=== PATIENT | female | born 1990 | race Caucasian/White ===

== ENCOUNTER 2016-10-02 23:28 | Emergency (ER) | payer OTHER ==
[2016-10-02] MEDS ORDERED: AMOXICILLIN 500 MG CAPSULE PO ONE (23:41)
[2016-10-02] MEDS ORDERED: HYDROcodone /APAP 5/325 1 EACH TABLET PO ONE ×2 (23:41→23:43)
--- NOTE | 2016-10-02 23:52 | ED Physician Documentation ---
Sore Throat/Dental Pain - HISTORIAN Historian: patient - HPI Stated Complaint: dental pain left jaw Chief Complaint: Dental Pain Additional Information: Pain right mandible began today. Teeth decaying in general since the of a child. Ibuprofen 800 mg twice today. - ROS CONST: no problems - PAST HX Past History: other ( induced hypertension) Allergies/Adverse Reactions: Allergies Allergy/AdvReac Type Severity Reaction Status Date / Time No Known Allergies Allergy Verified 10/02/16 23:50 Home Medications: Ambulatory Orders Medication Instructions Recorded Amoxicillin [Trimox] 500 mg PO TID #30 capsule 10/02/16 HYDROcodone /APAP 5/325 [Saffell 1 each PO Q4 PRN #15 tablet 10/02/16 5/325] - SOCIAL HX Smoking History: non-smoker - FAMILY HX Family History: No - VITAL SIGNS Vital Signs: Vital Signs Temp Pulse Resp BP Pulse Ox 98.4 F 78 16 150/79 10/02/16 23:28 10/02/16 23:28 10/02/16 23:28 10/02/16 23:28 - REVIEWED ASSESSMENTS Nursing Assessment Reviewed: Yes Vitals Reviewed: Yes Progress - Progress Progress: See the dentist as soon as possible. Take all the antibiotics as prescribed until they are completely gone. ED Results Lab/Radiology - Orders Orders: ED Orders Category Date Time Status Amoxicillin [Amoxil] Med 10/02/16 23:41 Discontinued 500 mg PO NOW ONE HYDROcodone /APAP 5/325 [Saffell 5/325] Med 10/02/16 23:41 Discontinued 1 each PO NOW ONE HYDROcodone /APAP 5/325 [Saffell 5/325] Med 10/02/16 23:43 Discontinued 1 each PO NOW ONE Dental Pain Physical Exam - EXAM General Appearance: alert, moderate distress (tearful at times) Head/Neck: head nml inspection, trachea midline, no lymphadenopathy, other ( right molars, mandibular and maxillary, with widespread decay.No abscess ID'ed) Mouth/Throat: lips nml, pharynx nml, voice nml, no drooling, no air way problems Ear/Nose: nml inspection Respiratory: no resp. distress, breath sounds nml CVS: reg. rate & rhythm, heart sounds nml Extremities: nml ROM (gait) Skin: warm/dry, normal color Neuro/Psych: No: weakness Discharge Clincal Impression: Pain due to dental caries Prescriptions: Amoxicillin [Trimox] 500 mg PO TID #30 capsule HYDROcodone /APAP 5/325 [Saffell 5/325] 1 each PO Q4 PRN #15 tablet PRN Reason: Pain Additional Instructions: See the dentist as soon as possible. Take all the antibiotics as prescribed until they are completely gone. Home Medications: Ambulatory Orders Amoxicillin [Trimox] 500 mg PO TID #30 capsule 10/02/16 HYDROcodone /APAP 5/325 [Saffell 5/325] 1 each PO Q4 PRN #15 tablet 10/02/16 Condition: Fair Disposition: HOME, SELF-CARE Decision to Admit: NO Decision Time: 23:57
[2016-10-03 00:40] VITALS: BP 147/74
== END 2016-10-03 00:24 | disposition home or self-care (01) ==
LOC: ED 23:28
DX: K02.9 Dental caries, unspecified (principal)
CPT/HCPCS: A9270 ×2; 99282

== ENCOUNTER 2017-12-18 14:00 | Emergency (ER) | payer OTHER ==
--- NOTE | 2017-12-18 14:14 | ED Physician Documentation ---
Nausea/Vomiting/Diarrhea - HISTORIAN Historian: patient - HPI Stated Complaint: nausea and vomiting Chief Complaint: Nausea,Vomiting,Diarrhea Onset: other (over 2 weeks ) Duration: constant Last known Well Code/Unknown Code: Unknown Timing: sudden onset (with ) Context: other ( ) Severity: moderate Further Comments: yes (she has is around 8 weeks and she has had nausea and vomiting. She reports she was seen in ER in [place] a few days ago and she was treated. She was not able to get her prescriptions due to the pharmacy not having the meds (they will be in tomorrow) she states she is "so hungry but everytime I go to eat I vomit" she states she has not "eaten in 7 days" . She is voiding normally) - Associated Symptoms Vomiting: frequent Diarrhea: other (none) Abdominal Pain: none - ROS CONST: none - PAST HX Past History: none Surgeries/Procedures: none Immunizations: UTD Allergies/Adverse Reactions: Allergies Allergy/AdvReac Type Severity Reaction Status Date / Time No Known Allergies Allergy Verified 12/18/17 14:20 Home Medications: Ambulatory Orders Medication Instructions Recorded Acyclovir [Zovirax] 200 mg PO 12/18/17 Pnv95/Ferrous Fumarate/FA 12/18/17 [ Caplet] - SOCIAL HX Smoking History: cigarettes Alcohol Use: none Drug Use: none - FAMILY HX Family History: none - VITAL SIGNS Vital Signs: Vital Signs Temp Pulse Resp BP Pulse Ox 97.5 F L 78 14 128/72 99 12/18/17 14:02 12/18/17 15:49 12/18/17 15:49 12/18/17 15:49 12/18/17 15:49 - REVIEWED ASSESSMENTS Nursing Assessment Reviewed: Yes Progress - Progress Progress: 1500: states nausea is improved. DG 1530: Nausea is mild. 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5 (0.0-1.5) Neut # (Auto) 5.5 # k/uL # k/uL (1.4-7.7) Lymph # (Auto) 1.6 # k/uL # k/uL (0.6-4.0) [place] # (Auto) 0.3 # k/uL # k/uL (0.0-0.9) Eos # (Auto) 0.2 # k/uL # k/uL (0.0-0.6) Baso # (Auto) 0.0 # k/uL # k/uL (0.0-0.5) Reactive Lymphs % 1.4 % % (0.0-5.0) Reactive Lymphs # 0.1 # k/uL # k/uL (0.0-0.8) Sodium 139 mmol/L mmol/L (136-145) Potassium 4.0 mmol/L mmol/L (3.5-5.1) Chloride 101 mmol/L mmol/L (98-107) Carbon Dioxide 23 mmol/L mmol/L (22-30) BUN 8 mg/dL mg/dL (7-17) Creatinine 0.70 mg/dL mg/dL (0.52-1.04) Estimated Creat Clear 186 Est GFR ( Amer) > 60 (60 - ) Est GFR (Non-Af Amer) > 60 (60 - ) Glucose 103 mg/dL mg/dL (74-106) Calcium 10.0 mg/dL mg/dL (8.4-10.2) Total Bilirubin 0.7 mg/dL mg/dL (0.2-1.3) AST 18 U/L U/L (15-46) ALT 26 U/L U/L (13-69) Alkaline Phosphatase 58 U/L U/L (38-126) Total Protein 8.3 g/dL H g/dL (6.3-8.2) Albumin 4.9 g/dL g/dL (3.5-5.0) Serum HCG, Qual Positive H (NEGATIVE) Urine Color Urine Appearance Urine pH Ur Specific [place] Urine Protein Urine Ketones Urine Occult Blood Urine Nitrite Urine Bilirubin Urine Urobilinogen Ur Leukocyte Esterase Urine Glucose 12/18/17 14:22 WBC RBC Hgb Hct MCV MCH MCHC RDW Plt Count Neut % (Auto) Lymph % (Auto) [place] % (Auto) Eos % (Auto) Baso % (Auto) Neut # (Auto) Lymph # (Auto) [place] # (Auto) Eos # (Auto) Baso # (Auto) Reactive Lymphs % Reactive Lymphs # Sodium Potassium Chloride Carbon Dioxide BUN Creatinine Estimated Creat Clear Est GFR ( Amer) Est GFR (Non-Af Amer) Glucose Calcium Total Bilirubin AST ALT Alkaline Phosphatase Total Protein Albumin Serum HCG, Qual Urine Color Yellow (YELLOW) Urine Appearance Cloudy H (CLEAR) Urine pH 5.5 (5.0 - 8.0) Ur Specific [place] >=1.030 H (1.010-1.030) Urine Protein Negative mg/dL mg/dL (NEGATIVE) Urine Ketones Trace mg/dL H mg/dL (NEGATIVE) Urine Occult Blood Trace-intact H (NEGATIVE) Urine Nitrite Negative (NEGATIVE) Urine Bilirubin Negative (NEGATIVE) Urine Urobilinogen 0.2 Eu Eu (0.2-1.0) Ur Leukocyte Esterase Trace H (NEGATIVE) Urine Glucose Negative mg/dL mg/dL (NEGATIVE) - Orders Orders: ED Orders Category Date Time Status IV Started NOW Care 12/18/17 14:25 Active CBC/PLATELET/DIFF Stat Lab 12/18/17 14:40 Completed CMP Stat Lab 12/18/17 14:40 Completed HCG QUANTITATIVE Routine Lab 12/18/17 14:40 Received SERUM HCG Stat Lab 12/18/17 14:40 Completed UA MACRO DIP ONLY Routine Lab 12/18/17 14:22 Completed 0.9 % Sodium Chloride [Normal Saline] 1,000 ml Med 12/18/17 14:25 Discontinued IV Q1H Ondansetron HCl/Pf [Zofran 4 mg/2 ml] Med 12/18/17 14:25 Discontinued 4 mg IVP NOW ONE Nausea Physical Exam - EXAM General Appearance: no acute distress, alert, other (she is laughing in room at visitor with her ) EENT: eye inspection normal, other (mucous membranes moist ) Neck: normal inspection Respiratory: no resp distress, chest non-tender, breath sounds normal CVS: reg rate & rhythm, heart sounds normal, equal pulses, no murmur Abdomen: non-tender, other (bowel sounds normal ) Back: non-tender Skin: warm/dry, normal color Extremities: non-tender, normal range of motion Neuro/Psych: oriented X3, CN's nml as tested Discharge Clincal Impression: Hyperemesis gravidarum Referrals: Primary Doctor,No [Primary Care Provider] - 2 Days Comments: 1. increase fluids - small sips - bland diet 2. Zofran 4 mg if needed for symptoms 3. Continue with meds as prescribed previously 4. Notify OBGYN 5. Return to ER for any further concerns Condition: Stable Disposition: 01 HOME, SELF-CARE Decision to Admit: NO Date of Decison to Admit: 12/18/17 Decision Time: 15:08
[2017-12-18] MEDS ORDERED: 0.9 % SODIUM CHLORIDE 1,000 ML IV ONE (14:25)
[2017-12-18] MEDS ORDERED: ONDANSETRON HCL/PF 4 MG/ 2ML VIAL IVP ONE (14:25)
[2017-12-18 14:49] LABS: BASOPHILS % 0.5 (0.0-1.5); EOSINOPHILS % 2.6 % (0.0-6.8); MEAN CORPUSCULAR VOLUME 89.1 fl (80.0-100.0); MONOCYTES % 4.3 % (0.0-11.0); NEUTROPHILS # 5.5 # k/uL (1.4-7.7)
[2017-12-18 15:00] LABS: eGFR (Non-African) > 60
[2017-12-18 15:19] LABS: APPEARANCE,URINE CLOUDY (CLEAR); COLOR,URINE YELLOW (YELLOW); PH URINE 5.5 (5.0 - 8.0); UROBILINOGEN URINE 0.2 Eu (0.2-1.0)
[2017-12-18 15:20] LABS: OCCULT BLOOD,URINE TRACE-INTACT (NEGATIVE)
[2017-12-18 15:51] VITALS: BP 128/72
== END 2017-12-18 15:49 | disposition home or self-care (01) ==
LOC: ED 14:00
DX: O21.0 Mild hyperemesis gravidarum (principal)
CPT/HCPCS: 80053; 81002; 84702; 84703; 85025; J2405; J7030; 96365; 96375; 99283; S1016

== ENCOUNTER 2018-03-25 22:32 | Emergency (ER) | payer SELFPAY ==
[2018-03-25] MEDS ORDERED: Lidocaine 2%Visc 15ml 20 MG/ML UDC PO ONE (22:57)
[2018-03-25] MEDS ORDERED: ACETAMINOPHEN 500 MG TABLET PO ONE (23:00)
--- NOTE | 2018-03-25 23:06 | ED Physician Documentation ---
Sore Throat/Dental Pain - HISTORIAN Historian: patient - HPI Chief Complaint: Dental Pain Onset: days ago Context: Dental Caries Further Comments: yes (27 year old female patient presents with complaint of dental pain. States she was seen at [facility] this week for dental pain; had dental block and was started on Amoxil. C/O worsening pain. Took Tylenol this morning. 25 weeks .) - ROS CONST: no problems CVS/RESP: none GI/: denies: problems urinating, nausea, vomiting MS/SKIN/LYMPH: denies: muscle aches, rash, leg swelling, ankle swelling, other NEURO/PSYCH: none - PAST HX Past History: none Other History: other (25 weeks ) Allergies/Adverse Reactions: Allergies Allergy/AdvReac Type Severity Reaction Status Date / Time No Known Allergies Allergy Verified 12/18/17 14:20 Home Medications: Ambulatory Orders Medication Instructions Recorded Acyclovir [Zovirax] 200 mg PO 12/18/17 Pnv No.95/Ferrous Fum/Folic AC 12/18/17 [ Caplet] - SOCIAL HX Smoking History: non-smoker - FAMILY HX Family History: No - VITAL SIGNS Vital Signs: Vital Signs Temp Pulse Resp BP Pulse Ox 128/72 12/18/17 15:49 - REVIEWED ASSESSMENTS Nursing Assessment Reviewed: Yes Vitals Reviewed: Yes Progress - Progress Progress: Discharged with viscous lidocaine; medicated with tylenol PO for pain ED Results Lab/Radiology - Orders Orders: ED Orders Category Date Time Status Acetaminophen [Tylenol Extra Strength] Med 03/25/18 23:00 Once 1,000 mg PO NOW ONE Lidocaine 2%Visc 15ml [Xylocaine] Med 03/25/18 22:57 Discontinued 15 mg PO NOW ONE Dental Pain Physical Exam - EXAM General Appearance: moderate distress Head/Neck: head nml inspection, trachea midline, no lymphadenopathy, thyroid nml , neck nml inspection Eyes: eyes nml inspection, PERRL Mouth/Throat: lips nml, gums nml, pharynx nml, voice nml, no drooling, no air way problems, no thrush, membranes nml, dental tenderness, other (dental caries to gumline ##19) Respiratory: no resp. distress CVS: reg. rate & rhythm Abdomen: soft, no organomegaly, normal bowel sounds, no abdominal bruit, no distension, other ( protuberant; + movement per patient) Skin: normal color, warm/dry, NR, INT, PAL, DR Neuro/Psych: No: none Discharge Clincal Impression: Pain due to dental caries Referrals: Primary Doctor,No [Primary Care Provider] - 2 Days Additional Instructions: Tylenol 650-1000mg every 4 hours as needed for pain, limit your dose to 4G in 24 hours. Over the counter DenTek - follow package directions. Over the counter Orajel as needed for pain Continue your amoxil as prescribed See your dentist as soon as possible Condition: Stable Disposition: 01 HOME, SELF-CARE Decision to Admit: NO Decision Time: 23:05
[2018-03-26 02:59] VITALS: BP 139/90
== END 2018-03-25 23:17 | disposition home or self-care (01) ==
LOC: ED 22:32
DX: K02.9 Dental caries, unspecified (principal)
CPT/HCPCS: 99283; A9270-GY